=== PATIENT | male | born 1970 | race Caucasian/White ===

== ENCOUNTER 2019-10-13 12:39 | Outpatient (CLI) | payer BC, SELFPAY ==
[2019-10-13 14:47] LABS: Ferritin 286 ng/mL (30-400)
--- NOTE | 2019-10-13 16:25 | ONC FU_ITS ---
Dr. 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 He had been seen initially by Dr. De La Torre with blisterlike lesions on both hands and arms. The clinical presentation was consistent with porphyria cutanea tarda, and his serum ferritin was found to be elevated at 630 ng/mL. An HFE gene analysis was negative for hereditary hemochromatosis. HIV testing and hepatitis C testing done in Dr. De La Torre's office was negative. He began a phlebotomy regimen. He was unable to tolerate a full unit of phlebotomy due to near syncope. He has since then getting 1/2 unit phlebotomies, which he has tolerated well. He has otherwise been in good health. He has no other ongoing medical illnesses. He does have a history of smoking less than 1/2 pack of cigarettes daily. He is now getting 1/2 unit phlebotomies prn .Last phlebotomy was in February 2018 Came for follow-up, denies any specific complaints, no fever chills, no nausea or vomiting, no diarrhea constipation, no abdominal pain, no abdominal fullness, no skin lesion or blisters Medications: There is no information available for Current Medications - Patient. Allergies: Codeine Sulfate Review of Systems: Constitutional - Appetite is good and weight is stable. No fever, chills, hot flashes, or night sweats. Energy level is good, ENMT - No sinus congestion/drainage. No mouth sores. No sore throat or difficulty swallowing, Hematologic/Lymphatic - No abnormal bruising or bleeding, Respiratory - No shortness of breath. No cough. No pleuritic pain or hemoptysis, Cardiovascular - No angina pain. No palpitations, Gastrointestinal - No nausea or vomiting. No heartburn or acid reflux. No diarrhea or constipation. No blood in the stool or black stools, Genitourinary (M) - No dysuria or hematuria. No urinary frequency. No urgency or incontinence, Musculoskeletal - No joint or bone pain, Neurologic - No headache or dizziness. No numbness/paresthesias or other focal neurologic symptoms, Psychiatric - No anxiety or depression. No insomnia. Vital Signs: Performed on Oct 13, 2019 13:29 Height - 68.00 in Weight - 191.8 lbs (HIGH) BSA - 2.01 sq.m BMI - 29.16 Temperature - 98.1 F (LOW) Pulse - 72 /min Respiration - 18 /min BP - 135/84 mm(hg) O2 Sat - 98 % Pain - 0 Performance Status: 0 - Fully active, able to carry on all predisease activities without restrictions. (ECOG) Physical Examination: ENMT - No mouth sores, no thrush, no jaundice, Respiratory - Lungs are clear, Cardiovascular - Regular rate and rhythm of heart, Abdomen - Soft, bowel sounds present, Extremities - No visible edema or rash or skin lesion or blisters. Lab/Imaging: Test performed on Oct 10, 2019 15:57 Glucose 108.0 mg/dL BUN 15.0 mg/dL Creatinine 0.9 mg/dL Cr Clearance (Est) 123.5200 mL/min Sodium 139.0 mmol/L Potassium 4.2 mmol/L Chloride 105.0 mmol/L CO2 27.0 mmol/L Calcium 10.2 mg/dL Protein, Total 7.8 g/dL Albumin 4.6 g/dL Globulin 3.2 g/dL A/G Ratio 1.4 Absolute Value Bilirubin, Total 0.3 mg/dL Alkaline Phosphatase 71.0 IU/L AST (SGOT) 41.0 IU/L ALT (SGPT) 65.0 IU/L WBC 9.2 10^9/L RBC 5.25 10^12/L HGB 16.8 g/dL HCT 51.5 % MCV 98.0 fl MCH 31.9 pg MCHC 32.6 g/dL RDW 13.6 % Platelet Count 293.0 10^9/L Neutrophils (Gran) 4.6 10^9/L Lymphocytes 3.9 10^9/L Monocytes 0.6 10^9/L Manual Lymphocytes 42.7 % Manual Monocytes 6.9 % Impression: 1. Patient with porphyria cutanea tarda, initially diagnosed in September 2016. HFE mutation not detected, hepatitis C and HIV screening was negative 2.s/p phlebotomy, currently 1/2 unit every 3-4 weeks Last phlebotomy was done in February 2018 Blisters on his hand now resolved, Plan: Discussed with patient regarding his labs from October 10, 2019 showed white blood count 9.2, hemoglobin 16.8 hematocrit 51.5 platelets 293,000 CMP within normal limits, ferritin is pending Clinically, patient is doing well, with no new signs symptoms no skin lesions or blisters. Patient was supposed to get iron studies along with his routine labs in his [facility] office but somehow due to miscommunication iron studies were not done, so ferritin was drawn today and result is pending., Patient was advised to avoid iron rich food like red meat and greens. His CBC also showed mildly elevated hematocrit probably due to chronic smoking,, patient is a heavy smoker, he was advised to quit smoking and was offered any assistance he may need. If ferritin, is in desirable range and patient remains asymptomatic we will continue to monitor and he will return to clinic in 3 months with a ferritin level unless he develops any skin lesions then he will call us early. Signed By: Deanna Nolasco M.D. <<Signature on File>>
== END 2019-10-13 12:40 | disposition home or self-care (01) ==
LOC: ONCMED 12:42
PROVIDERS: PCP Family Medicine; Visit Provider Internal Medicine Hematology & Oncology
DX: E80.1 Porphyria cutanea tarda (principal); F17.210 Nicotine dependence, cigarettes, uncomplicated; R79.89 Other specified abnormal findings of blood chemistry
CPT/HCPCS: 82728; G0463

== ENCOUNTER 2019-10-14 15:26 | Outpatient (CLI) | payer BC, SELFPAY ==
[2019-10-14] MEDS: sodium chloride 0.9% 250 ML 999 ML IV (15:59)
== END 2019-10-14 15:27 | disposition home or self-care (01) ==
LOC: ONCMED 15:31
PROVIDERS: PCP Family Medicine; Visit Provider Internal Medicine Hematology & Oncology
DX: E80.1 Porphyria cutanea tarda (principal)
CPT/HCPCS: 99195; J7050

== ENCOUNTER 2020-01-13 12:46 | Outpatient (CLI) | payer BC, SELFPAY ==
--- NOTE | 2020-01-13 16:41 | ONC FU_ITS ---
Dr. Nolasco follow up note Patient: Deven Harrison Unit #: [id number]: 1970 Dicatated By: Deanna Nolasco M.D.Date of Visit:Jan 13, 2020 Onc Med Follow-up/Prog Note History of Present Illness: This is a 49 year-old man with porphyria cutanea tarda. He had been seen initially by Dr. De La Torre with blisterlike lesions on both hands and arms. The clinical presentation was consistent with porphyria cutanea tarda, and his serum ferritin was found to be elevated at 630 ng/mL. An HFE gene analysis was negative for hereditary hemochromatosis. HIV testing and hepatitis C testing done in Dr. De La Torre's office was negative. He began a phlebotomy regimen. He was unable to tolerate a full unit of phlebotomy due to near syncope. He has since then getting 1/2 unit phlebotomies, which he has tolerated well. He has otherwise been in good health. He has no other ongoing medical illnesses. He does have a history of smoking less than 1/2 pack of cigarettes daily. He is now getting 1/2 unit phlebotomies prn .Last phlebotomy was in February 2018 Came for follow-up, denies any specific complaints, no fever chills, no nausea or vomiting, no diarrhea constipation, patient underwent phlebotomy on October 14, 2019 for elevated ferritin and tolerated well. Now he is watching his diet. But no new skin blisters No right upper quadrant pain, no jaundice Medications: There is no information available for Current Medications - Patient. Allergies: Codeine Sulfate Review of Systems: Constitutional - Appetite is good and weight is stable. No fever, chills, hot flashes, or night sweats. Energy level is good, ENMT - No sinus congestion/drainage. No mouth sores. No sore throat or difficulty swallowing, Hematologic/Lymphatic - No abnormal bruising or bleeding, Respiratory - No shortness of breath. No cough. No pleuritic pain or hemoptysis, Cardiovascular - No angina pain. No palpitations, Gastrointestinal - No nausea or vomiting. No heartburn or acid reflux. No diarrhea or constipation. No blood in the stool or black stools, Genitourinary (M) - No dysuria or hematuria. No urinary frequency. No urgency or incontinence, Musculoskeletal - No joint or bone pain, Neurologic - No headache or dizziness. No numbness/paresthesias or other focal neurologic symptoms, Psychiatric - No anxiety or depression. No insomnia. Vital Signs: Performed on Jan 13, 2020 13:34 Height - 68.00 in Weight - 191.0 lbs (LOW) BSA - 2.00 sq.m BMI - 29.04 Temperature - 98.6 F Pulse - 79 /min Respiration - 18 /min BP - 127/75 mm(hg) O2 Sat - 94 % (LOW) Pain - 0 Performance Status: 0 - Fully active, able to carry on all predisease activities without restrictions. (ECOG) Physical Examination: ENMT - No mouth sores, no thrush, no jaundice, Respiratory - Lungs are clear to auscultation, Cardiovascular - Regular rate and rhythm of heart, Abdomen - Soft, bowel sounds present, Extremities - No visible edema. Lab/Imaging: Test performed on Jan 12, 2020 08:09 Ferritin 108 ng/mL % Iron Saturation 29 % Iron, Total 107 mcg/dL TIBC 367 mcg/dL WBC 10.0 10^9/L RBC 5.23 10^12/L HGB 16.7 g/dL HCT 50.9 % MCV 97.3 fl MCH 31.9 pg MCHC 32.8 g/dL RDW 13.0 % Platelet Count 331.0 10^9/L Neutrophils (Gran) 6.0 10^9/L Lymphocytes 3.6 10^9/L Monocytes 0.3 10^9/L Manual Lymphocytes 36.4 % Manual Monocytes 3.3 % Test performed on Oct 10, 2019 15:57 Glucose 108.0 mg/dL BUN 15.0 mg/dL Creatinine 0.9 mg/dL Cr Clearance (Est) 123.5200 mL/min Sodium 139.0 mmol/L Potassium 4.2 mmol/L Chloride 105.0 mmol/L CO2 27.0 mmol/L Calcium 10.2 mg/dL Protein, Total 7.8 g/dL Albumin 4.6 g/dL Globulin 3.2 g/dL A/G Ratio 1.4 Absolute Value Bilirubin, Total 0.3 mg/dL Alkaline Phosphatase 71.0 IU/L AST (SGOT) 41.0 IU/L ALT (SGPT) 65.0 IU/L Impression: 1. Patient with porphyria cutanea tarda, initially diagnosed in September 2016. HFE mutation not detected, hepatitis C and HIV screening was negative 2.s/p phlebotomy, currently 1/2 unit every 3-4 weeks Last phlebotomy was done in February 2018 Blisters on his hand now resolved, Plan: Discussed with patient regarding his labs white blood count 10 hemoglobin 16.7 hematocrit 50.9 platelets 331,000 ferritin 108 compared to 286 on October 13, 2019 Clinically, patient is doing well with no new signs symptoms, no skin rash or blisters, is follow-up labs shows ferritin improved significantly with 1 phlebotomy, at this point we will continue to monitor return to clinic in 2 months with CBCs and ferritin and also consider alpha-fetoprotein Signed By: Deanna Nolasco M.D. <<Signature on File>>
== END 2020-01-13 12:47 | disposition home or self-care (01) ==
LOC: ONCMED 12:47
PROVIDERS: PCP Family Medicine; Visit Provider Internal Medicine Hematology & Oncology
DX: E80.1 Porphyria cutanea tarda (principal)
CPT/HCPCS: G0463

== ENCOUNTER 2020-05-19 11:51 | Outpatient (CLI) | payer BC, SELFPAY ==
[2020-05-19 12:43] LABS: Basophils # 0.1 10^3/uL (0.0-0.1); Basophils % 0.6 %; Eosinophils # 0.2 10^3/uL (0.0-0.8); Eosinophils % 2.4 %; Hematocrit 46.9 % (42.0-52.0); Hemoglobin 15.7 g/dL (11.7-16.6); Lymphocytes # 3.3 10^3/uL (0.8-4.8); Lymphocytes % 37.2 %; Mean Corpuscular HGB Conc 33.5 g/dL (30.0-36.0); Mean Corpuscular Hemoglobin 32.3 pg (28.0-34.0); Mean Corpuscular Volume 96.5 fL (80-94); Mean Platelet Volume 10.4 fL (7.4-10.4); Monocytes # 0.7 10^3/uL (0.2-0.9); Monocytes % 8.1 %; Neutrophils # 4.51 10^3/uL (1.8-7.7); Neutrophils % 51.5 %; Nucleated Red Blood Cells % 0 %; Platelet Count 298 10^3/cmm (130-400); Red Blood Count 4.86 10^6/uL (4.1-5.3); Red Cell Distribution Width 12.5 % (12.1-15.1); White Blood Count 8.8 10^3/uL (4.0-10.0)
[2020-05-19 13:27] LABS: Alanine Aminotransferase 34 U/L (0-41); Albumin Level 4.3 g/dL (3.5-5.2); Alkaline Phosphatase 65 IU/L (40-130); Anion Gap 13.2 (5-19); Aspartate Amino Transferase 20 U/L (0-40); Blood Urea Nitrogen 9 mg/dL (6-20); Calcium 9.4 mg/dL (8.5-10.5); Carbon Dioxide 24 mmol/L (22-29); Chloride 103 mmol/L (98-107); Globulin 2.9 g/dL (1.3-4.6); Glomerular Filtration Rate 119.9 mL/min (90-130); Glucose 92 mg/dL (65-115); Osmolality Calculated 280 mOsm/kg (285-295); Potassium 4.2 mmol/L (3.5-5.1); Sodium 136 mmol/L (136-145); Total Bilirubin 0.2 mg/dL (0.15-1.2); Total Protein 7.2 g/dL (6.6-8.7)
--- NOTE | 2020-05-19 16:14 | ONC FU_ITS ---
Dr. Nolasco follow up note Patient: Deven Harrison Unit #: [id number]: 1970 Dicatated By: Deanna Nolasco M.D.Date of Visit:May 19, 2020 Onc Med Follow-up/Prog Note History of Present Illness: This is a 49 year-old man with porphyria cutanea tarda. He had been seen initially by Dr. De La Torre with blisterlike lesions on both hands and arms. The clinical presentation was consistent with porphyria cutanea tarda, and his serum ferritin was found to be elevated at 630 ng/mL. An HFE gene analysis was negative for hereditary hemochromatosis. HIV testing and hepatitis C testing done in Dr. De La Torre's office was negative. He began a phlebotomy regimen. He was unable to tolerate a full unit of phlebotomy due to near syncope. He has since then getting 1/2 unit phlebotomies, which he has tolerated well. He has otherwise been in good health. He has no other ongoing medical illnesses. He does have a history of smoking less than 1/2 pack of cigarettes daily. He is now getting 1/2 unit phlebotomies prn .Last phlebotomy was in February 2018 Came for follow-up, denies any specific complaints, no blisters on his hands, no fever chills, no nausea or vomiting, no jaundice, no urine or stool color changes, no abdominal pain, no skin rash, appetite is good Medications: There is no information available for Current Medications - Patient. Allergies: Codeine Sulfate Review of Systems: Review of Systems is not available for this patient. Vital Signs: Performed on May 19, 2020 13:37 Height - 68.00 in Weight - 194.8 lbs (HIGH) BSA - 2.02 sq.m BMI - 29.62 Temperature - 97.4 F (LOW) Pulse - 66 /min Respiration - 18 /min BP - 132/75 mm(hg) O2 Sat - 96 % Pain - 0 Fatigue - 0 Performance Status: 0 - Fully active, able to carry on all predisease activities without restrictions. (ECOG) Physical Examination: ENMT - No mouth sores, no thrush, no jaundice, Respiratory - Lungs are clear to auscultation, Cardiovascular - Regular rate and rhythm of heart, Abdomen - Soft, bowel sounds present, Extremities - No visible edema rash or blisters. Lab/Imaging: Test performed on Jan 12, 2020 08:09 Ferritin 108 ng/mL % Iron Saturation 29 % Iron, Total 107 mcg/dL TIBC 367 mcg/dL WBC 10.0 10^9/L RBC 5.23 10^12/L HGB 16.7 g/dL HCT 50.9 % MCV 97.3 fl MCH 31.9 pg MCHC 32.8 g/dL RDW 13.0 % Platelet Count 331.0 10^9/L Neutrophils (Gran) 6.0 10^9/L Lymphocytes 3.6 10^9/L Monocytes 0.3 10^9/L Manual Lymphocytes 36.4 % Manual Monocytes 3.3 % Impression: 1. Patient with porphyria cutanea tarda, initially diagnosed in September 2016. HFE mutation not detected, hepatitis C and HIV screening was negative 2.s/p phlebotomy, currently 1/2 unit every 3-4 weeks Last phlebotomy was done in February 2018 Blisters on his hand now resolved, Plan: Discussed with patient regarding his labs white blood count 8.8 hemoglobin 15.7 hematocrit 46.9 platelets 298,000 CMP within normal limits ferritin is pending AFP 3 Clinically, patient doing well with no signs symptom no skin rash or blisters. His lab work-up is within normal range his ferritin is pending his AFP is within normal range we will continue to monitor he will return to clinic in 3 months unless his ferritin is more than 100 in that case we will consider phlebotomy. We will also obtain records from Dr. De La Torre's office regarding pophyria cutanea tarda work-up if not done, will consider testing for UROD gene mutation Signed By: Deanna Nolasco M.D. <<Signature on File>>
[2020-05-19 17:51] LABS: Ferritin 161 ng/mL (30-400)
== END 2020-05-19 11:52 | disposition home or self-care (01) ==
LOC: ONCMED 11:53
PROVIDERS: PCP Family Medicine; Visit Provider Internal Medicine Hematology & Oncology
DX: E80.1 Porphyria cutanea tarda (principal); F17.210 Nicotine dependence, cigarettes, uncomplicated
CPT/HCPCS: 36415; 80053; 82105; 82728; 85025; 99214

== ENCOUNTER 2020-08-27 09:25 | Outpatient (CLI) | payer BC, SELFPAY ==
[2020-08-27 09:45] LABS: Basophils # 0.1 10^3/uL (0.0-0.1); Basophils % 0.7 %; Eosinophils # 0.4 10^3/uL (0.0-0.8); Eosinophils % 3.5 %; Hematocrit 48.6 % (42.0-52.0); Hemoglobin 16.3 g/dL (11.7-16.6); Mean Corpuscular HGB Conc 33.5 g/dL (30.0-36.0); Mean Corpuscular Hemoglobin 31.9 pg (28.0-34.0); Mean Corpuscular Volume 95.1 fL (80-94); Mean Platelet Volume 10.2 fL (7.4-10.4); Monocytes # 0.9 10^3/uL (0.2-0.9); Monocytes % 9.2 %; Neutrophils # 4.81 10^3/uL (1.8-7.7); Neutrophils % 47.2 %; Nucleated Red Blood Cells % 0 %; Platelet Count 303 10^3/cmm (130-400); Red Blood Count 5.11 10^6/uL (4.1-5.3); Red Cell Distribution Width 12.8 % (12.1-15.1); White Blood Count 10.2 10^3/uL (4.0-10.0)
[2020-08-27 09:58] LABS: Ferritin 201 ng/mL (30-400)
[2020-08-27] MEDS: sodium chloride 0.9% 250 ML IV (12:00)
--- NOTE | 2020-08-27 13:04 | ONC FU_ITS ---
Dr. Nolasco follow up note Patient: Deven Harrison Unit #: [id number]: 1970 Dicatated By: Deanna Nolasco M.D.Date of Visit:Aug 27, 2020 Onc Med Follow-up/Prog Note History of Present Illness: This is a 49 year-old man with porphyria cutanea tarda. He had been seen initially by Dr. De La Torre with blisterlike lesions on both hands and arms. The clinical presentation was consistent with porphyria cutanea tarda, and his serum ferritin was found to be elevated at 630 ng/mL. An HFE gene analysis was negative for hereditary hemochromatosis. HIV testing and hepatitis C testing done in Dr. De La Torre's office was negative. He began a phlebotomy regimen. He was unable to tolerate a full unit of phlebotomy due to near syncope. He has since then getting 1/2 unit phlebotomies, which he has tolerated well. He has otherwise been in good health. He has no other ongoing medical illnesses. He does have a history of smoking less than 1/2 pack of cigarettes daily. He is now getting 1/2 unit phlebotomies prn .Last phlebotomy was in February 2018 Came for follow-up, denies any specific complaints, no fever chills, no nausea or vomiting, no diarrhea or constipation, no headaches blurred vision double vision, no blisters or skin changes in upper extremities or hands Medications: There is no information available for Current Medications - Patient. Allergies: Codeine Sulfate Review of Systems: Review of Systems is not available for this patient. Vital Signs: Performed on Aug 27, 2020 11:05 Height - 68.00 in Weight - 197.2 lbs (HIGH) BSA - 2.03 sq.m BMI - 29.98 Temperature - 98.2 F (LOW) Pulse - 67 /min Respiration - 18 /min BP - 122/88 mm(hg) O2 Sat - 96 % Pain - 0 Fatigue - 4 Performance Status: 0 - Fully active, able to carry on all predisease activities without restrictions. (ECOG) Physical Examination: ENMT - No mouth sores, no thrush, no jaundice, Respiratory - Lungs are clear to auscultation, Cardiovascular - Regular rate and rhythm of heart, Abdomen - Soft, bowel sounds present, Extremities - No visible edema, No rash, no blisters. Lab/Imaging: Most recent lab results are not available for this patient. Impression: 1. Patient with porphyria cutanea tarda, initially diagnosed in September 2016. HFE mutation not detected, hepatitis C and HIV screening was negative 2.s/p phlebotomy, currently 1/2 unit every 3-4 weeks Last phlebotomy was done in February 2018 Blisters on his hand now resolved, Plan: Discussed with patient regarding his labs white blood count 10.2 hemoglobin 16.3 hematocrit 48.6 platelets 303,000 ferritin 201 compared to 261 previously 100 prior to that Clinically, patient is doing reasonably well with no new signs symptoms, no blisters involving upper extremities or hands. But his ferritin is continued to go up, patient is consuming green vegetable but not beef. At this point we will proceed with phlebotomy now and then every 2 weeks to keep ferritin less than 100, and to keep hematocrit above 45. Return to clinic in 1 month with CBC and ferritin, we will also check with Dr. De La Torre's office regarding UROD gene mutation or any work-up done for PCT, if not done, will consider UROD gene mutation testing Signed By: Deanna Nolasco M.D. <<Signature on File>>
== END 2020-08-27 09:26 | disposition home or self-care (01) ==
LOC: ONCMED 09:28
PROVIDERS: PCP Family Medicine; Visit Provider Internal Medicine Hematology & Oncology
DX: E80.1 Porphyria cutanea tarda (principal); F17.210 Nicotine dependence, cigarettes, uncomplicated
CPT/HCPCS: 82728; 85025; 96360; 99195; 99215; J7050

== ENCOUNTER 2020-09-24 05:46 | Outpatient (RCR) | payer BC, SELFPAY ==
[2020-09-09 14:52] LABS: Basophils # 0.1 10^3/uL (0.0-0.1); Basophils % 0.7 %; Eosinophils # 0.4 10^3/uL (0.0-0.8); Eosinophils % 4.2 %; Hematocrit 45.3 % (42.0-52.0); Hemoglobin 15.1 g/dL (11.7-16.6); Lymphocytes # 3.9 10^3/uL (0.8-4.8); Mean Corpuscular HGB Conc 33.3 g/dL (30.0-36.0); Mean Corpuscular Hemoglobin 31.9 pg (28.0-34.0); Mean Corpuscular Volume 95.8 fL (80-94); Mean Platelet Volume 10.5 fL (7.4-10.4); Monocytes # 0.7 10^3/uL (0.2-0.9); Monocytes % 7.8 %; Neutrophils # 3.96 10^3/uL (1.8-7.7); Neutrophils % 44.1 %; Nucleated Red Blood Cells % 0 %; Platelet Count 308 10^3/cmm (130-400); Red Blood Count 4.73 10^6/uL (4.1-5.3); Red Cell Distribution Width 12.8 % (12.1-15.1)
[2020-09-09 15:10] LABS: Ferritin 174 ng/mL (30-400)
[2020-09-09] MEDS: sodium chloride 0.9% 250 ML 999 ML IV (15:50)
[2020-09-24 08:45] LABS: Basophils # 0.1 10^3/uL (0.0-0.1); Basophils % 0.7 %; Eosinophils # 0.3 10^3/uL (0.0-0.8); Eosinophils % 3.6 %; Hematocrit 45.4 % (42.0-52.0); Hemoglobin 14.9 g/dL (11.7-16.6); Lymphocytes # 3.2 10^3/uL (0.8-4.8); Mean Corpuscular HGB Conc 32.8 g/dL (30.0-36.0); Mean Corpuscular Hemoglobin 32.1 pg (28.0-34.0); Mean Corpuscular Volume 97.8 fL (80-94); Mean Platelet Volume 10.7 fL (7.4-10.4); Monocytes # 0.8 10^3/uL (0.2-0.9); Monocytes % 10.3 %; Neutrophils # 3.61 10^3/uL (1.8-7.7); Nucleated Red Blood Cells % 0 %; Platelet Count 269 10^3/cmm (130-400); Red Blood Count 4.64 10^6/uL (4.1-5.3)
[2020-09-24 09:06] LABS: Ferritin 127 ng/mL (30-400)
--- NOTE | 2020-09-24 13:33 | ONC FU_ITS ---
Dr. Nolasco follow up note Patient: Deven Harrison Unit #: [id number]: 1970 Dicatated By: Deanna Nolasco M.D.Date of Visit:Sep 24, 2020 Onc Med Follow-up/Prog Note History of Present Illness: This is a 49 year-old man with porphyria cutanea tarda. He had been seen initially by Dr. De La Torre with blisterlike lesions on both hands and arms. The clinical presentation was consistent with porphyria cutanea tarda, and his serum ferritin was found to be elevated at 630 ng/mL. An HFE gene analysis was negative for hereditary hemochromatosis. HIV testing and hepatitis C testing done in Dr. De La Torre's office was negative. He began a phlebotomy regimen. He was unable to tolerate a full unit of phlebotomy due to near syncope. He has since then getting 1/2 unit phlebotomies, which he has tolerated well. He has otherwise been in good health. He has no other ongoing medical illnesses. He does have a history of smoking less than 1/2 pack of cigarettes daily. He is now getting 1/2 unit phlebotomies prn .Last phlebotomy was in February 2018 Came for follow-up, denies any specific complaints, no fever chills, no nausea or vomiting, no diarrhea constipation, no melena hematochezia, no hemoptysis hematemesis, no headaches no blurred vision or double vision, no skin lesion or blisters Medications: There is no information available for Current Medications - Patient. Allergies: Codeine Sulfate Review of Systems: Review of Systems is not available for this patient. Vital Signs: Performed on Sep 24, 2020 09:00 Height - 68.00 in Weight - 197.8 lbs (HIGH) BSA - 2.03 sq.m BMI - 30.08 (HIGH) Temperature - 98.3 F (LOW) Pulse - 73 /min Respiration - 18 /min BP - 143/82 mm(hg) (HIGH) O2 Sat - 97 % Pain - 0 Fatigue - 0 Performance Status: 0 - Fully active, able to carry on all predisease activities without restrictions. (ECOG) Physical Examination: ENMT - No mouth sores, no thrush, no jaundice, Respiratory - Lungs are clear to auscultation, Cardiovascular - Regular rate and rhythm of heart, Abdomen - Soft, bowel sounds present, Extremities - No visible edema or rash or blisters. Lab/Imaging: Most recent lab results are not available for this patient. Impression: 1. Patient with porphyria cutanea tarda, initially diagnosed in September 2016. HFE mutation not detected, hepatitis C and HIV screening was negative Work-up done and dermatology office in October 2016 showed Whole blood erythrocyte porphyrin checked on October 30, 2016 was 19, normal being 0-35 Serum total porphyrins 127 e.g. high 24-hour urine for hepatocarboxylate, elevated at 66, uroporphyrin 151, coproporphyrin 7, coproporphyrin III 17, ALT elevated 2.s/p phlebotomy, currently 1/2 unit every 3-4 weeks Last phlebotomy was done in February 2018 Blisters on his hand now resolved, Plan: Discussed with patient regarding his labs white blood count 8 hemoglobin 14.9 hematocrit 45.4 platelets 269,000 ferritin 127 Clinically, patient doing well with no new signs symptom suggestive of recurrence of PCT, no skin lesion, no blisters,, his PCT has responded very well to phlebotomies, even patient is not taking precautions like avoiding sun exposure or smoking. But somewhat mindful about iron rich food especially steak. At this point, will consider repeating his serum porphyrin level, check 24-hour urine for heptacarboxylate, uroporphyrin, coproporphyrin, if elevated, may consider low-dose hydrochloroquine which is as effective as phlebotomy., We will hold his scheduled phlebotomy today and then patient will return to clinic after above-mentioned work-up is done for further discussion. Signed By: Deanna Nolasco M.D. <<Signature on File>>
== END 2020-10-02 23:59 | disposition home or self-care (01) ==
LOC: ONCMED 05:46
PROVIDERS: PCP Family Medicine; Visit Provider Internal Medicine Hematology & Oncology
DX: E80.1 Porphyria cutanea tarda (principal); D50.9 Iron deficiency anemia, unspecified; Z86.19 Personal history of other infectious and parasitic diseases; Z79.899 Other long term (current) drug therapy
CPT/HCPCS: 36415; 82728; 85025; 96360; 99195; 99214; J7050

== ENCOUNTER 2021-01-03 14:08 | Outpatient (CLI) | payer BC, SELFPAY ==
--- NOTE | 2021-01-03 14:14 | CT_ITS ---
WS: [id number] LDCT LUNG CANCER SCREENING TECHNIQUE: Noncontrast CT of the chest with coronal and sagittal reformatted images. CLINICAL INFORMATION: HISTORY OF TOBACCO USE COMPARISON: None. DLP: 59.33 mGy.cm DIvol: 1.[address] scans at [facility] use at least one of these dose optimization techniques: automat ed exposure control; mA and/or kV adjustment per patient size (includes targeted exams where dose is matched to clinical indication); or iterative reconstruction. FINDINGS: Both lungs are well aerated. No acute pulmonary infiltrates. Calcified granuloma right lower lobe. No focal pneumonia or pleural fluid. Normal caliber thoracic aorta. Calcified right hilar nodes. Medrano ry calcification. Adrenal glands are normal. Normal GE junction. CT/CT lung screening [id number] IMPRESSION: LUNG-RADS: 1-Negative FOLLOW UP: 12 Month: Continue annual screening with LDCT
== END 2021-01-03 14:09 | disposition home or self-care (01) ==
LOC: CT 14:09
PROVIDERS: PCP Family Medicine; Visit Provider Family Medicine
DX: Z12.2 Encounter for screening for malignant neoplasm of respiratory organs (principal); Z87.891 Personal history of nicotine dependence; J84.10 Pulmonary fibrosis, unspecified; I25.10 Atherosclerotic heart disease of native coronary artery without angina pectoris
CPT/HCPCS: 71271

== ENCOUNTER 2022-01-31 07:50 | Outpatient (CLI) | payer BC, SELFPAY ==
--- NOTE | 2022-01-31 07:55 | CT_ITS ---
WS: [id number] LDCT LUNG CANCER SCREENING TECHNIQUE: Noncontrast CT of the chest with coronal and sagittal reformatted images. CLINICAL INFORMATION: HISTORY OF TOBACCO USE COMPARISON: CT January 03, 2021 DLP: 79.91 mGy.cm DIvol: Mean CTDIvol: 1.60 (mGy) All CT scans at [facility] use at least one of these dose optimization techniques: automat ed exposure control; mA and/or kV adjustment per patient size (includes targeted exams where dose is matched to clinical indication); or iterative reconstruction. FINDINGS: No suspicious pulmonary parenchymal opacities. Normal thoracic aorta. No mediastinal or hilar lymphadenopathy. Coronary calcification. Adrenal gland s are normal. Normal GE junction. No axillary lymphadenopathy. Normal thoracic spine. Calcified granu khloe RIGHT lower lobe. No suspicious pulmonary parenchymal opacities. CT/CT lung screening [id number] IMPRESSION: LUNG-RADS: 1-Negative FOLLOW UP: 12 Month: Continue annual screening with LDCT
== END 2022-01-31 07:51 | disposition home or self-care (01) ==
PROVIDERS: PCP Family Medicine; Visit Provider Family Medicine
DX: Z12.2 Encounter for screening for malignant neoplasm of respiratory organs (principal); Z87.891 Personal history of nicotine dependence
CPT/HCPCS: 71271

== ENCOUNTER 2023-01-29 16:40 | Outpatient (CLI) | payer OTHER, SELFPAY ==
--- NOTE | 2023-01-29 16:53 | CT_ITS ---
WS: [id number] LDCT LUNG CANCER SCREENING HISTORY: NICOTINE DEPENDENCE, CIGARETTES TECHNIQUE: Axial imaging performed from the apices to 1 cm below the costophrenic angles. Coronal and sagittal reformats are submitted with axial MIP series. All CT scans at [facility] use at least one of these dose optimization techniques: automated exposure control; mA and/or kV adjustment per patient size (includes targeted exams where dose is matched to clinical indication); or iterativ e reconstruction. DLP: 82.99 mGy.cm DIvol: Mean CTDIvol: 1.60 (mGy) COMPARISON: 01/31/2022 Diagnostic quality: Satisfactory Lungs: No pulmonary mass or nodule. Benign granuloma RIGHT lower lobe. No endobronchial lesions. Heart: Normal size heart with no pericardial effusion.. Mild coronary artery calcification. Other findings: No adenopathy. Minimal atherosclerosis aorta. Normal size aorta and pulmonary artery. Hepatic steatosis. Negative upper abdomen is visualized. IMPRESSION: CT/CT lung screening [id number] LUNG-RADS: 1-Negative FOLLOW UP: 12 Month: Continue annual screening with LDCT OTHER FINDINGS (S MODIFIER): None.
== END 2023-01-29 16:41 | disposition home or self-care (01) ==
PROVIDERS: PCP Family Medicine; Visit Provider Family Medicine
DX: Z12.2 Encounter for screening for malignant neoplasm of respiratory organs (principal); F17.210 Nicotine dependence, cigarettes, uncomplicated
CPT/HCPCS: 71271

== ENCOUNTER 2024-02-14 10:46 | Outpatient (CLI) | payer OTHER, SELFPAY ==
--- NOTE | 2024-02-14 10:56 | CT_ITS ---
WS: [id number] LDCT LUNG CANCER SCREENING HISTORY: NICOTINE DEPENDENCE,CIGARETTES TECHNIQUE: Axial imaging performed from the apices to 1 cm below the costophrenic angles. Coronal and sagittal reformats are submitted with axial MIP series. All CT scans at [facility] use at least one of these dose optimization techniques: automated exposure control; mA and/or kV adjustment per patient size (includes targeted exams where dose is matched to clinical indication); or iterativ e reconstruction. DLP: 78.10 mGy.cm DIvol: Mean CTDIvol: 1.70 (mGy) COMPARISON: 01/29/2023 Diagnostic quality: Satisfactory Lungs: No pulmonary nodules or masses. There is a tiny micronodule at the RIGHT apex which is stable. No endobronchial lesions. Mild chronic emphysema. Heart: Normal size heart with no pericardial effusion.. Other findings: No adenopathy. No adrenal mass. Normal size aorta. CT/CT lung screening [id number] IMPRESSION: LUNG-RADS: 1-Negative FOLLOW UP: 12 Month: Continue annual screening with LDCT OTHER FINDINGS (S MODIFIER): None.
== END 2024-02-14 10:47 | disposition home or self-care (01) ==
LOC: RAD 10:47
PROVIDERS: PCP Family Medicine; Visit Provider Family Medicine
DX: Z12.2 Encounter for screening for malignant neoplasm of respiratory organs (principal); R91.1 Solitary pulmonary nodule; F17.210 Nicotine dependence, cigarettes, uncomplicated
CPT/HCPCS: 71271

== ENCOUNTER 2025-02-16 12:03 | Outpatient (CLI) | payer BC, SELFPAY ==
--- NOTE | 2025-02-16 12:09 | CT_ITS ---
WS: [id number] LDCT LUNG CANCER SCREENING TECHNIQUE: Noncontrast CT of the chest with coronal and sagittal reformatted images. CLINICAL INFORMATION: NICOTINE DEPENDENCE, CIGARETTES COMPARISON: 2023 DLP: 89.61 mGy.cm DIvol: Mean CTDIvol: 1.80 (mGy) All CT scans at [facility] use at least one of these dose optimization techniques: automated exposure control; mA and/or kV adjustment per patient size (includes targeted exams where dose is matched to clinical indication); or iterative reconstruction. FINDINGS: Mild chronic emphysematous changes. A few tiny micronodules RIGHT upper lobe. No new suspicious pulmonary parenchymal abnormalities. Calcified granuloma RIGHT lower lobe. Aortic calcification. Coronary calcification. No mediastinal or hilar lymphadenopathy. No axillary lymphadenopathy. Adrenal glands are normal. Small cyst in the liver. Food products in this distended stomach. Mild thoracic curve. CT/CT lung screening [id number] IMPRESSION: LUNG-RADS: 2-Benign Appearance or Behavior FOLLOW UP: 12 Month: Continue annual screening with LDCT
== END 2025-02-16 12:04 | disposition home or self-care (01) ==
LOC: RAD 12:05
PROVIDERS: PCP Family Medicine; Visit Provider Family Medicine
DX: Z12.2 Encounter for screening for malignant neoplasm of respiratory organs (principal); F17.210 Nicotine dependence, cigarettes, uncomplicated
CPT/HCPCS: 71271